=== PATIENT | female | born 1975 | race American Indian/Alaskan Native ===

== ENCOUNTER 2018-12-02 21:01 | Emergency (ER) | payer OTHER ==
--- NOTE | 2018-12-02 21:19 | PDOC ---
Rapid Medical Evaluation Time Seen by Provider: 12/02/18 21:17 Medical Evaluation: 12/02/18 21:18 HPI: Describes inversion type injury to L ankle PE: Unable to bear weight ORDERS: X-ray Discharge Disposition - Diagnosis Ankle sprain - Referrals - Patient Instructions - Post Discharge Activity
[2018-12-02 21:21] VITALS: BP 121/64; PULSE 75; TEMP 98.7; BMI 22.3
[2018-12-02] MEDS ORDERED: IBUPROFEN 400 MG TABLET (FP) PO ONE (22:33)
--- NOTE | 2018-12-02 22:48 | PDOC ---
History of Present Illness - General Chief Complaint: Injury Stated Complaint: ANKLE INJURY Time Seen by Provider: 12/02/18 21:17 History Source: Patient - History of Present Illness Occurred: reports: this afternoon Severity: Yes: moderate Lower Extremity Pain Location: right: foot, ankle Method of Injury: Yes: fell Past History - Past Medical History Allergies/Adverse Reactions: Allergies Allergy/AdvReac Type Severity Reaction Status Date / Time No Known Allergies Allergy Verified 12/02/18 21:21 Home Medications: Ambulatory Orders Ibuprofen [Motrin -] 800 mg PO QID #28 tablet 12/02/18 COPD: No - Suicide/Smoking/Psychosocial Hx Smoking History: Never smoked Have you smoked in the past 12 months: No Information on smoking cessation initiated: No Hx Alcohol Use: No Drug/Substance Use Hx: No Review of Systems - Review of Systems Musculoskeletal: Yes: Joint Pain, Joint Swelling *Physical Exam - Vital Signs Last Vital Signs Temp Pulse Resp BP Pulse Ox 98.7 F 75 18 121/64 100 12/02/18 21:19 12/02/18 21:19 12/02/18 21:19 12/02/18 21:19 12/02/18 21:19 - Physical Exam General Appearance: Yes: Appropriately Dressed, Mild Distress HEENT: positive: Normal Voice Neck: positive: Supple Respiratory/Chest: negative: Respiratory Distress Extremity: positive: Swelling (minimal swelling to lat mallolus w/ ttp) Integumentary: positive: Dry, Warm Neurologic: positive: Fully Oriented, Alert, Normal Mood/Affect ED Treatment Course - Medications Given in the ED: ED Medications Discontinued Medications Generic Name Dose Route Start Last Admin Trade Name Himaq PRN Reason Stop Dose Admin Ibuprofen 800 mg 12/02/18 22:33 12/02/18 22:34 Motrin - PO 12/02/18 22:34 800 mg ONCE ONE Administration Medical Decision Making - Medical Decision Making 12/02/18 22:54 43 yo F, no sig hx, here w/ R ankle/foot pain and swelling after she stepped into a ditch today. Ambulating w/ crutches since see exam Possible ankle/foot sprain ? minor avulsion fx to cuboid bone on XR -GUZMAN -Dc w/ [facility] -ortho f/u *DC/Admit/Observation/Transfer Diagnosis at time of Disposition: Ankle sprain Qualifiers: Encounter type: initial encounter Involved ligament of ankle: other ligament Laterality: right Qualified Code(s): S93.491A - Sprain of other ligament of right ankle, initial encounter - Discharge Dispostion Disposition: HOME Condition at time of disposition: Good - Prescriptions Prescriptions: Ibuprofen [Motrin -] 800 mg PO QID #28 tablet - Referrals Referrals: Ranjit Escobar MD [Staff Physician] - - Patient Instructions Printed Discharge Instructions: DI for Ankle Sprain Additional Instructions: Your xray did not show a significant fracture but showed a possible very small avulsion fracture Keep GUZMAN in place for comfort, elevate extremity and ice area Please follow up with Dr Escobar of orthopedics in 1 week - Post Discharge Activity
== END 2018-12-02 22:55 | disposition home or self-care (01) ==
LOC: JERFT 21:01
DX: S93.491A Sprain of other ligament of right ankle, initial encounter (principal); X50.0XXA Overexertion from strenuous movement or load, initial encounter; Y93.01 Activity, walking, marching and hiking; Y92.89 Other specified places as the place of occurrence of the external cause
CPT/HCPCS: 73610-TC-RT-FY; 73630-TC-RT-FY; 99282-25

== ENCOUNTER 2022-03-04 16:17 | Emergency (ER) | payer OTHER ==
[2022-03-04 16:26] VITALS: BP 132/78; PULSE 66; RESP 16; TEMP 97.9; BMI 24.0
[2022-03-04 17:11] LABS: HEMATOCRIT 41.6 % (32.4-45.2); HEMOGLOBIN 14.4 G/dL (10.7-15.3); MCH 32.1 pg (25.7-33.7); MCHC 34.6 g/dl (32.0-36.0); MEAN CELL VOLUME 92.9 fl (80-96); MEAN PLT VOLUME 10.4 fl (7.5-11.1); PLATELET COUNT 200.2 10^3/uL (134-434); RBC 4.48 10^6/uL (3.60-5.2); RDW 13.5 % (11.6-15.6); WHITE BLOOD COUNT 6.1 10^3/uL (4.0-10.8)
[2022-03-04 17:17] LABS: PLATELET ESTIMATE ADEQUATE
[2022-03-04 17:21] LABS: ALBUMIN 4.7 g/dl (3.4-5.0); ALK PHOS 51 U/L (45-117); ANION GAP 9 MMOL/L (8-16); BILIRUBIN,TOTAL 0.6 mg/dl (0.2-1); CALCIUM 9.2 mg/dl (8.5-10); CHLORIDE 100 mmol/L (98-107); CO2 31 mmol/L (21-32); CREATININE 0.8 mg/dl (0.55-1.3); GLUCOSE,RANDOM 88 mg/dl (74-106); SGOT/AST 20 U/L (15-37); SGPT/ALT 15 U/L (13-61); SODIUM 140 mmol/L (136-145); TOT PROT 7.4 g/dl (6.4-8.2)
== END 2022-03-04 17:52 | disposition home or self-care (01) ==
LOC: FER 16:17
DX: R07.9 Chest pain, unspecified (principal)
CPT/HCPCS: 36415; 71046-TC-FY; 80053; 84484; 85027; 93005; 99285-25